=== PATIENT | female | born 1950 | race Caucasian/White ===

== ENCOUNTER 2019-05-30 08:37 | Day surgery (SDC) | payer MEDICARE, BC ==
[~2019-05-30 08:37] MED LIST: Lactated Ringers 1,000 ML IV SCH; Midazolam 1 MG/ML 2 ML SDV ONE; Propofol 200 MG/20 ML SDV ONE; Sodium Chloride 0.9% 10 ML Syringe FLUSH PRN
--- NOTE | 2019-05-30 09:50 | PCM.HPR ---
H & P Addendum review - H & P Addendum Review Date of Original H & P: 05/07/19 Date Reviewed: 05/30/19 Time Reviewed: 09:50 Patient was Examined: No Changes
[2019-05-30] MEDS ORDERED: Scopolamine 1.5 MG Transdermal Patch ONE ×2 (09:52→09:57)
[2019-05-30] MEDS ORDERED: Midazolam 1 MG/ML 2 ML SDV ONE (09:57)
[2019-05-30] MEDS ORDERED: Propofol 200 MG/20 ML SDV ONE ×2 (09:57→10:50)
[2019-05-30] MEDS ORDERED: Ondansetron 4 MG/2 ML SDV ONE (09:57)
[2019-05-30] MEDS ORDERED: Dexamethasone 10 MG/ML SDV ONE (09:57)
--- NOTE | 2019-05-30 10:43 | PCM.OPNOTE ---
- General Post-Op/Procedure Note Date of Surgery/Procedure: 05/30/19 Operative Procedure(s): Colonoscopy with polypectomy Findings: polyps, tics Pre Op Diagnosis: Screening Post-Op Diagnosis: Same Anesthesia Technique: MAC Primary Surgeon: Adonis Mathews Anesthesia Provider: Taryn Cardenas Complications: None Condition: Good
--- NOTE | 2019-05-30 14:17 | OR ---
Date of Procedure: 05/30/2019 PREOPERATIVE DIAGNOSIS: Colon screening. POSTOPERATIVE DIAGNOSES: 1. Colon polyps. 2. Sigmoid diverticulosis. PROCEDURE: Colonoscopy with polypectomy. ANESTHESIA: IV sedation. DESCRIPTION OF PROCEDURE: The patient was brought to the procedure room where she was placed on the left side and IV sedation administered. Digital rectal exam was performed which was normal. Colonoscope was inserted and advanced to the level of the cecum without difficulty. Cecal position was confirmed by identifying the appendiceal lumen and the ileocecal valve. Prep was good, and surfaces were well visualized. Upon withdrawing the scope, the ascending colon was normal. At the hepatic flexure, were two small 4 mm sessile polyps, each removed with a cautery snare and sent as one specimen. The transverse and descending colon were normal. Sigmoid colon has a fairly large pedunculated polyp measuring 8 mm in diameter, located at 35 cm from the anal verge that was removed with a cautery snare and retrieved in the polyp trap. There also was a few small sigmoid diverticula present. Rectum was normal and retroflexion was normal. Air was removed and the scope withdrawn. The patient tolerated the procedure well and returned to Recovery in stable condition. The patient will follow up with Gita Bruce for review of pathology report. If any polyps are adenomatous, she should undergo a repeat colonoscopy again in 10 years. If all polyps are hyperplastic, she could wait 10 years until her next colon screening. JORJE LUCIANO MD /[id number]
[2019-05-30 16:30] VITALS: BP 131/79; PULSE 58
== END 2019-05-30 11:48 | disposition home or self-care (01) ==
LOC: LL.SDS 08:37
PROVIDERS: ATTEND Surgery
DX: D12.3 Benign neoplasm of transverse colon (principal); D12.5 Benign neoplasm of sigmoid colon; K57.30 Diverticulosis of large intestine without perforation or abscess without bleeding; I10 Essential (primary) hypertension; M06.9 Rheumatoid arthritis, unspecified; Z79.899 Other long term (current) drug therapy
CPT/HCPCS: 45385; A9270; J1100; J2250; J2405; J2704; J7120; 00811